=== PATIENT | female | born 1965 | race American Indian/Alaskan Native ===

== ENCOUNTER 2019-08-09 09:59 | Outpatient (CLI) | payer BC ==
--- NOTE | 2019-08-09 11:27 | Mammography Report ---
BILATERAL DIGITAL SCREENING MAMMOGRAM WITH CAD HISTORY: SCREENING MAMMO TECHNIQUE: Routine digital mammographic imaging performed. This examination was interpreted with tania bonner benefit of Computer-aided Detection analysis. COMPARISON: 07/21/2011. FINDINGS: Breast Density: heterogeneously dense breast parenchymal pattern which somewhat lessens the sensitivi ty of the evaluation. Digital CC and MLO views demonstrate a new partially circumscribed round low-density lesion in the ri ght lateral posterior breast. No significant change in left superior breast calcifications. Relative long-term stability would support a benign etiology. IMPRESSION: Right lateral posterior breast round lesion for which a targeted ultrasound is recommended for furthe r evaluation. For localization purposes, the right breast should be scanned from the 8:00 to 9:00 pos ition, focused 9 cm from the nipple. BIRADS 0-Incomplete: Needs additional imaging evaluation NOTE: WE WILL RECALL THE PATIENT FOR THIS ADDITIONAL EVALUATION. FURTHER INFORMATION: According to the [employer], yearly mammograms are recommend ed starting at age 40 and continuing as long as a woman is in good health. Clinical Breast Exams shou ld be part of a periodic health exam-about every 3 years for women in their 20s and 30s and every yea r for women 40 and over. Breast self exam is an option for women starting in their 20s. Any breast ch weston noted on a breast self exam should be reported promptly to the patient's healthcare provider. Br east MRI is recommended for women with an approximately 20-25% or greater lifetime risk of breast can cer, including women with a strong family history of breast or ovarian cancer and women who have been treated for Hodgkin's disease. A negative Mammography report should not discourage follow up or biopsy of a clinically significant f inding and/or abnormality. Dense breast tissue may obscure small neoplasms. The patient will be entered into a reminder system with a target due date for the next screening mamm ogram. Signer Name: Dennis Rodriguez MD Signed: 08/09/2019 11:22 AM Workstation Name: [id number]
--- NOTE | 2019-08-09 11:30 | Mammography Report ---
BONE DEXA CLINICAL: Postmenopausal, osteopenia. TECHNIQUE: 2 site bone DEXA performed on an Hologic scanner. FINDINGS: The average BMD of the lumbar spine L1-L4 is 1.072 g/cm squared with a T score of 0.2 and a Z score o f 0.4. The average total BMD of the left hip is 0.835 g/cm squared with a T score of -0.9 and a Z score of - 0.8. IMPRESSION: WHO classification: Osteopenia fracture risk based on left hip measurements. RECOMMENDATION: Clinical correlation and routine screening. Definitions: BMD equal bone mineral density T score = BMD related to peak bone mass of young adult (Talib expressed an standard deviation) Z score = age-matched BMD expressed in SD World health organization (WHO) diagnostic criteria Normal T score greater than equal to 1 standard deviation Osteopenia T score between -1 and -2.4 standard deviation Osteoporosis T score -2.5 standard deviation or below. Note: BMD is not the only risk factor for fracture; also consider factors such as the patient's age, risk of falling, previous osteoporotic fracture, family history of osteoporotic fractures, current sm oker and low body weight. Z scores are not calculated if greater than 80 years of age. Signer Name: Dennis Rodriguez MD Signed: 08/09/2019 11:26 AM Workstation Name: [id number]
== END 2019-08-09 10:00 | disposition home or self-care (01) ==
LOC: MAMMO 09:59
PROVIDERS: ATTEND Physician Assistant
DX: Z12.31 Encounter for screening mammogram for malignant neoplasm of breast (principal); Z13.820 Encounter for screening for osteoporosis; N95.1 Menopausal and female climacteric states; N64.89 Other specified disorders of breast
CPT/HCPCS: 77067; 77080

== ENCOUNTER 2019-09-04 08:53 | Outpatient (CLI) | payer BC ==
--- NOTE | 2019-09-04 09:31 | Ultrasound Report ---
EXAMINATION: Right Limited Breast Ultrasound, 09/04/2019 INDICATION: ABN MAMMO COMPARISON: Recent screening mammogram, 08/09/2019 FINDINGS: Targeted ultrasound evaluation was performed of the area of interest. Within the 8:00 posi tion of the right breast, 9 cm from the nipple, there is an anechoic well-circumscribed round mass me asuring 8 mm in diameter. The appearance is consistent with a simple cyst and does correlate with abn ormal mammographic findings on recent screening mammogram. No additional abnormalities are noted.. IMPRESSION: Benign finding of an 8 mm simple cyst in the right breast at 8:00. Follow up recommendation: Routine yearly BI-RADS Category 2: Benign. Signer Name: Savita Messina MD Signed: 09/04/2019 9:26 AM Workstation Name: [email or web address]
== END 2019-09-04 08:54 | disposition home or self-care (01) ==
LOC: MAMMO 08:53
PROVIDERS: ATTEND Physician Assistant
DX: N60.01 Solitary cyst of right breast (principal); N63.13 Unspecified lump in the right breast, lower outer quadrant

== ENCOUNTER 2021-08-17 12:39 | Outpatient (CLI) | payer BC ==
--- NOTE | 2021-08-17 14:53 | Mammography Report ---
DEXA BONE DENSITY SCAN INDICATION / CLINICAL INFORMATION: Z78.0. 56 years Female COMPARISON: 08/09/19. LUMBAR SPINE, L1-L4: - Bone mineral density (BMD) = 1.075 g/cm2. - T-score = 0.3 - Change (%) since most recent prior (if available): 0.2% increase RIGHT HIP -Not performed. LEFT HIP, NECK : - Bone mineral density (BMD) = 0.714 g/cm2. - T-score = -1.2 - Change (%) since most recent prior (if available): 1.5% decrease. IMPRESSION: 1. WHO Classification: Osteopenia. Fracture Risk: Increased. 2. 10-Year Fracture Risk (FRAX) = Major Osteoporotic 2.8% / Hip: 0.2% FRAX generally not reported for patients with normal or osteoporotic BMD, in [id number] manuel ents younger than age 50, or in patients undergoing pharmacotherapy BMD Reporting Guidelines (ISCD, 2015) BMD Reporting in Postmenopausal Women and in Men Age 50 and Older - T-scores are preferred. - The WHO densitometric classification is applicable. BMD Reporting in Females Prior to Menopause and in Males Younger Than Age 50 - Z-scores, not T-scores, are preferred. This is particularly important in children. - A Z-score of -2.0 or lower is defined as below the expected range for age, and a Z-score above -2.0 is within the expected range for age. - Osteoporosis cannot be diagnosed in men under age 50 on the basis of BMD alone. - The WHO diagnostic criteria may be applied to women in the menopausal transition. http://www.iscd.org/official-positions/1650-djpq-rgtplxgz-positions-adult/ Signer Name: Sterling Villafuerte MD Signed: 08/17/2021 2:48 PM Workstation Name: [id number]
--- NOTE | 2021-08-17 17:59 | Mammography Report ---
BILATERAL DIGITAL DIAGNOSTIC MAMMOGRAM WITH CAD 08/17/2021 RIGHT LIMITED BREAST ULTRASOUND INDICATION: The patient's physician identified a palpable lump in the patient's right breast. The pat ient is unable to identify a focal area of palpable concern on today's evaluation. TECHNIQUE: Digital bilateral mammographic imaging was performed. This examination was interpreted w ith the benefit of Computer-Aided Detection (CAD) analysis. COMPARISON: Bilateral mammogram, 08/09/2019 FINDINGS: Breast Density: The breasts are heterogeneously dense, which may obscure small masses. MAMMOGRAPHIC FINDINGS: There is no evidence of dominant mass, suspicious calcifications or architectu ral distortion in either breast. There is no focal mammographic abnormality to account for the area o f palpable concern in the superior aspect of the patient's right breast as marked with the skin marke r. ULTRASOUND FINDINGS: Targeted ultrasound evaluation was performed of the area of interest. Sonograp hic evaluation of the upper one half of the right breast demonstrates no evidence of suspicious solid mass or shadowing. There is an oval 1.7 cm cyst at the 9:00 position 6 cm from the nipple. IMPRESSION: 1. No mammographic or sonographic evidence of malignancy. Clinical correlation is recommended for th e area of palpable concern in the patient's right breast. Follow up recommendation: Clinical exam BI-RADS Category 2: BENIGN. A "normal" or negative report should not discourage follow up or biopsy of a clinically significant f inding. A written summary of these findings will be mailed to the patient. The patient will be entered into a mammography reporting system which will generate a reminder letter for the patient's next appointmen t at the appropriate interval. According to the [employer], yearly mammograms are recommended starting at age 40 and continuing as long as a woman is in good health. Breast MRI is recommended for women with an jonna roximately 20-25% or greater lifetime risk of breast cancer, including women with a strong family his tory of breast or ovarian cancer and women who have been treated for Hodgkin's disease. Signer Name: Romana John MD Signed: 08/17/2021 5:55 PM Workstation Name: [id number]
== END 2021-08-17 12:40 | disposition home or self-care (01) ==
LOC: MAMMO 12:39
PROVIDERS: ATTEND Physician Assistant
DX: N60.01 Solitary cyst of right breast (principal); N63.15 Unspecified lump in the right breast, overlapping quadrants; M85.88 Other specified disorders of bone density and structure, other site; Z78.0 Asymptomatic menopausal state
CPT/HCPCS: 77066; 77080